=== PATIENT | male | born 2000 | race Caucasian/White ===

== ENCOUNTER 2022-04-23 16:24 | Emergency (ER) | payer OTHER, SELFPAY ==
[2022-04-23 16:31] VITALS: BMI 23.4
--- NOTE | 2022-04-23 16:57 | ED.GENADULT ---
HPI - General Adult General Time Seen by Provider: 16:57 Date Seen: 04/23/22 Chief complaint: Unspecified Complaint, Adult Stated complaint: Lump On Head Time Seen by Provider: 04/23/22 16:45 Source: patient History of Present Illness HPI narrative: Scooby is a 22 year old male student who presents to the ED via private care with a lump on the head. Patient states that he has had the lump on the top of his head for the last 2 weeks, he is a student at [employer], he does not think that it has been draining but he noticed states foul smell that gets into his hair. No history of any MRSA. Has not had anything like this in the past. No other lesion. It is very tender to touch. No other concerns at this time. Related Data Previous Rx's Medication Instructions Recorded cefuroxime axetil 500 mg tablet 500 mg PO BID 7 days #14 tabs 04/23/22 Allergies Allergy/AdvReac Type Severity Reaction Status Date / Time No Known Drug Allergies Allergy Verified 04/23/22 16:34 Review of Systems Status of ROS: Reports: 10 or more systems reviewed and unremarkable except as noted in History and below [facility] Social History Smoking Status: Current some day smoker Second hand tobacco smoke exposure: No How often do you have a drink containing alcohol: 2-3 times a week How many standard drinks containing alcohol do you have on a typical day: 1 or 2 How often do you have six or more drinks on one occasion: Weekly AUDIT-C Alcohol total score: 6 Non-prescribed substance use: denies use service: No Exam Const: Vital Signs, click to edit/add: Vital Signs - 24 hr 04/23/22 17:41 Pulse Rate [Right Pulse Oximeter] 82 Respiratory Rate 16 Blood Pressure [Ri ght Upper Arm] 125/87 Pulse Oximetry 98 Oxygen Delivery Me thod Room Air Common normals: no apparent distress HENMT: Common normals: normocephalic and head/scalp atraumatic Head and scalp: normocephalic and atraumatic Other: 1 cm abscess on the top of the scalp, tender, no induration, some fluctuance, no surrounding erythema. Eye: Common normals: PERRL and EOMs intact bilaterally Pupil: PERRL Neck & C-Spine: Common normals: full ROM Lymph: Lymphatic: no lymphadenopathy noted Resp: Common normals: clear to auscultation bilaterally Auscultation: clear to auscultation bilaterally Cardio: Common normals: S1 normal heart sound and S2 normal heart sound Heart sounds: S1 normal and S2 normal GI: Common normals: Normal to inspection, nondistended, normoactive bowel sounds present Extremity: Common normals: normal to inspection Course Course Hospital Course: 5:00 PM: AIDET performed. Plan to perform I and D, looks more like area of cellulitis. Please see procedure note. Reevaluation(s) Reevaluation #1: Plan to discharge, prescription for Cefuroxime 500 mg taking twice daily for the next 7 days. To continue with soap and water to the are, bacitracin ointment or vaseline daily until heals. To follow up with primary care provider in the next 7-10 days. Return if worsening symptoms. Time: 17:39 Vital Signs Vital signs: Initial Vital Signs Pulse Rate 82 04/23/22 17:41 Pulse Rhythm 04/23/22 17:41 Respiratory Rate 16 04/23/22 17:41 Respiratory Effort 04/23/22 17:41 Respiratory Depth Normal 04/23/22 17:41 Respiratory Pattern 04/23/22 17:41 Blood Pressure 125/87 04/23/22 17:41 Blood Pressure Mean 99 04/23/22 17:41 Pulse Oximetry 98 04/23/22 17:41 Oxygen Delivery Method 04/23/22 17:41 Vital Signs Pulse Rate 82 04/23/22 17:41 Respiratory Rate 16 04/23/22 17:41 Blood Pressure 125/87 04/23/22 17:41 Pulse Oximetry 98 04/23/22 17:41 Oxygen Delivery Method 04/23/22 17:41 Pulse Rate 82 04/23/22 17:41 Respiratory Rate 16 04/23/22 17:41 Blood Pressure 125/87 04/23/22 17:41 Pulse Oximetry 98 04/23/22 17:41 Oxygen Delivery Method 04/23/22 17:41 Discharge Plan Discharge Clinical Impression: Abscess or cellulitis of scalp Patient Disposition: Home, Self-Care Condition: Improved Instructions: Abscess (ED) Additional Instructions: To continue with soap and water to the area to keep clean, continue with Cefuroxime 500 mg twice daily for 7 days. Return if worsening symptoms. Follow-up with a primary care provider as needed over the next 7-10 days. Activity Level: Activity as Tolerated Prescriptions: New cefuroxime axetil 500 mg tablet 500 mg PO BID 7 Days Qty: 14 0RF Stand Alone Forms: [employer] Info Instructions
[2022-04-23 17:41] VITALS: BP 125/87; PULSE 82; RESP 16; O2SAT 98
== END 2022-04-23 17:46 | disposition home or self-care (01) ==
PROVIDERS: Emergency Provider Student in an Organized Health Care Education/Training Program
DX: L02.811 Cutaneous abscess of head [any part, except face] (principal)
CPT/HCPCS: 99283; 99284